=== PATIENT | female | born 1990 | race Asian ===

== ENCOUNTER 2022-03-10 14:05 | Inpatient (IN) | payer OTHER ==
[2022-03-10 15:24] VITALS: BMI 31.7
[2022-03-10] MEDS ORDERED: DINOPROSTONE 10 MG VAGINAL SUPPOSITORY VG ONE (15:43)
[2022-03-10] MEDS ORDERED: BUTORPHANOL TARTRATE 2 MG/ML VIAL IVPB ONE (15:44)
[2022-03-10] MEDS ORDERED: PROMETHAZINE HCL 25 MG/1 ML VIAL IVPUSH ONE (15:44)
[2022-03-10 16:30] LABS: BASO % 0.6 % (0-2.0); EOS % 0.7 % (0-4.5); HEMATOCRIT 34.7 % (32.4-45.2); MCH 30.6 pg (25.7-33.7); MCHC 34.5 g/dl (32.0-36.0); MEAN CELL VOLUME 88.7 fl (80-96); MEAN PLT VOLUME 8.5 fl (7.5-11.1); MONO % 6.9 % (3.8-10.2); NEUT % 77.8 % (42.8-82.8); PLATELET COUNT 142 10^3/uL (134-434); RBC 3.91 M/mm3 (3.60-5.2); WHITE BLOOD COUNT 8.3 K/mm3 (4.0-10.0)
[2022-03-10 16:39] LABS: INR 1.12 (0.83-1.09); PROTHROMBIN TIME (PATIENT) 12.9 SEC (9.7-13.0)
[2022-03-10 16:42] LABS: ACTIVATED PTT 29.1 SECONDS (25.2-36.5)
[2022-03-10 17:30] LABS: CALCIUM 8.6 mg/dL (8.5-10.1)
[2022-03-10 17:33] LABS: CREATININE 0.3 mg/dL (0.55-1.3)
[2022-03-10] MEDS: DEXTROSE 5%-LACTATED RINGERS 1,000 ML IV SCH (18:00)
[2022-03-11] MEDS ORDERED: ELECTROLYTE-148 SOLN 1,000 ML IV ONE (05:00)
[2022-03-11] MEDS: DEXTROSE 5%-LACTATED RINGERS 1,000 ML IV SCH (05:00)
[2022-03-11] MEDS ORDERED: OXYTOCIN 30 UNITS in 0.9% NS 30 UNIT/500 ML INFUS.BAG IVPB ONE (05:23)
[2022-03-11] MEDS: OXYTOCIN 30 UNITS in 0.9% NS 30 UNIT/500 ML INFUS.BAG IVPB SCH ×2 (05:30→05:50)
[2022-03-11] MEDS ORDERED: CITRIC ACID/SODIUM CITRATE 30 ML UNIT-DOSE CUP PO ONE (08:18)
[2022-03-11] MEDS ORDERED: morphine SULFATE/PF 1 MG/2 ML (2cc Syringe - QUVA) EP ONE (08:26)
[2022-03-11] MEDS ORDERED: ONDANSETRON 4 MG/2 ML VIAL IVPUSH PRN (08:26)
[2022-03-11] MEDS ORDERED: morphine SULFATE/PF 1 MG/2 ML (2cc Syringe - QUVA) ONE (08:31)
[2022-03-11] MEDS ORDERED: SODIUM CHLORIDE 0.9% P/F 10 ML VIAL IJ ONE (08:32)
[2022-03-11] MEDS ORDERED: ceFAZolin SODIUM 1 GM VIAL ONE (08:32)
[2022-03-11] MEDS ORDERED: PHENYLEPHRINE HCL 10 MG/1 ML SINGLE DOSE VIAL ONE (08:45)
[2022-03-11] MEDS ORDERED: OXYTOCIN 10 UNITS/ML VIAL ONE (08:53)
[2022-03-11] MEDS ORDERED: ONDANSETRON 4 MG/2 ML VIAL ONE (08:57)
[2022-03-11] MEDS ORDERED: MIDAZOLAM HCL 2 MG/2 ML SINGLE DOSE VIAL ONE (09:11)
[2022-03-11 09:25] LABS: CORD PCO2 59.5 mmHg (30-78); CORD pH 7.259 (7.14-7.44)
[2022-03-11 09:26] LABS: CORD BASE EXCESS -2.8 mmol/L (0-2); CORD HCO3 23.1 mmHg (20-29); CORD PCO2 44.3 mmHg (30-78); CORD pH 7.335 (7.14-7.44)
[2022-03-11] MEDS ORDERED: ACETAMINOPHEN 325 MG TABLET (FP) PO PRN (09:43)
[2022-03-11] MEDS ORDERED: SENNOSIDES/DOCUSATE COMBO (SENNA PLUS) TABLET (UD) PO PRN (09:43)
[2022-03-11] MEDS ORDERED: METHYLERGONOVINE MALEATE 0.2 MG/1 ML AMP IM PRN (09:43)
[2022-03-11] MEDS: OXYTOCIN 20 UNITS in 0.9% NS 20 UNIT/1,000 ML INFUS.BAG IV SCH (11:08)
[2022-03-11] MEDS ORDERED: OXYTOCIN 20 UNITS in 0.9% NS 20 UNIT/1,000 ML INFUS.BAG IV ONE (11:09)
[2022-03-11] MEDS: CEFAZOLIN 1 GM in DEXTROSE 5%-WATER - 50 ML IVPB SCH ×2 (16:25→17:09)
[2022-03-11] MEDS: IBUPROFEN 800 MG/8 ML IJ IVPB PRN (17:27)
[2022-03-11] MEDS ORDERED: oxyCODONE HCL 5 MG TABLET PO PRN (21:44)
[2022-03-12] MEDS: CEFAZOLIN 1 GM in DEXTROSE 5%-WATER - 50 ML IVPB SCH ×2 (01:00→10:03)
[2022-03-12] MEDS: IBUPROFEN 800 MG/8 ML IJ IVPB PRN (01:32)
[2022-03-12] MEDS: oxyCODONE HCL 5 MG TABLET PO PRN ×2 (06:30→19:35)
[2022-03-12] MEDS: SIMETHICONE 80 MG TAB.CHEW (FP) PO PRN ×2 (06:32→19:36)
[2022-03-12 08:12] LABS: BASO % 0.3 % (0-2.0); EOS % 0.4 % (0-4.5); HEMATOCRIT 32.8 % (32.4-45.2); LYMPH % 10.7 % (8-40); MCHC 33.4 g/dl (32.0-36.0); MEAN CELL VOLUME 89.7 fl (80-96); MONO % 5.5 % (3.8-10.2); NEUT % 83.1 % (42.8-82.8); PLATELET COUNT 138 10^3/uL (134-434); RBC 3.66 M/mm3 (3.60-5.2); RDW 16.3 % (11.6-15.6); WHITE BLOOD COUNT 8.7 K/mm3 (4.0-10.0)
[2022-03-12] MEDS ORDERED: BISACODYL 10 MG SUPP.RECT RC PRN (09:44)
[2022-03-12] MEDS: ENOXAPARIN NA (PORCINE) 40 MG/0.4 ML DISP.SYRIN SQ SCH (10:01)
[2022-03-12] MEDS: IBUPROFEN 600 MG TABLET (FP) PO PRN (10:02)
[2022-03-12] MEDS: FERROUS SO4 325 MG TABLET (FP) PO SCH ×2 (10:03→21:19)
[2022-03-12] MEDS: PRENATAL VITAMINS W/ FOLIC ACID TABLET (FP) PO SCH (10:03)
[2022-03-13] MEDS: SIMETHICONE 80 MG TAB.CHEW (FP) PO PRN ×5 (00:11→22:29)
[2022-03-13] MEDS: OXYTOCIN 30 UNITS in 0.9% NS 30 UNIT/500 ML INFUS.BAG IVPB SCH (00:42)
[2022-03-13] MEDS: OXYTOCIN 20 UNITS in 0.9% NS 20 UNIT/1,000 ML INFUS.BAG IV SCH (00:51)
[2022-03-13] MEDS: IBUPROFEN 600 MG TABLET (FP) PO PRN ×5 (02:30→22:28)
[2022-03-13] MEDS: FERROUS SO4 325 MG TABLET (FP) PO SCH ×2 (09:22→22:29)
[2022-03-13] MEDS: PRENATAL VITAMINS W/ FOLIC ACID TABLET (FP) PO SCH (09:22)
[2022-03-13] MEDS: ENOXAPARIN NA (PORCINE) 40 MG/0.4 ML DISP.SYRIN SQ SCH (09:23)
[2022-03-13 22:05] VITALS: RESP 16
[2022-03-14] MEDS: IBUPROFEN 600 MG TABLET (FP) PO PRN ×3 (02:34→10:46)
[2022-03-14 08:57] LABS: BASO % 0.3 % (0-2.0); EOS % 2.1 % (0-4.5); HEMATOCRIT 31.6 % (32.4-45.2); HEMOGLOBIN 10.6 GM/dL (10.7-15.3); LYMPH % 17.2 % (8-40); MCH 30.1 pg (25.7-33.7); MCHC 33.6 g/dl (32.0-36.0); MEAN CELL VOLUME 89.3 fl (80-96); MEAN PLT VOLUME 8.1 fl (7.5-11.1); MONO % 4.8 % (3.8-10.2); NEUT % 75.6 % (42.8-82.8); PLATELET COUNT 153 10^3/uL (134-434); RBC 3.53 M/mm3 (3.60-5.2); WHITE BLOOD COUNT 5.9 K/mm3 (4.0-10.0)
[2022-03-14] MEDS: PRENATAL VITAMINS W/ FOLIC ACID TABLET (FP) PO SCH (09:27)
[2022-03-14] MEDS: FERROUS SO4 325 MG TABLET (FP) PO SCH (09:27)
[2022-03-14] MEDS: ENOXAPARIN NA (PORCINE) 40 MG/0.4 ML DISP.SYRIN SQ SCH (09:27)
[2022-03-14 10:37] VITALS: BP 101/65; PULSE 95; TEMP 97.8
== END 2022-03-14 12:30 | disposition home or self-care (01) | DRG 540 ==
LOC: JLDR 14:05 → J3W 03-11 11:45
PROVIDERS: ADMIT Obstetrics & Gynecology; ATTEND Obstetrics & Gynecology
PROC: 3E0P7VZ Introduction of Hormone into Female Reproductive, Via Natural or Artificial Opening (ICD-10-PCS; 2022-03-10)
PROC: 10D00Z1 Extraction of Products of Conception, Low, Open Approach (ICD-10-PCS; principal; 2022-03-11)
DX: O36.8330 Maternal care for abnormalities of the fetal heart rate or rhythm, third trimester, not applicable or unspecified (principal); O41.03X0 Oligohydramnios, third trimester, not applicable or unspecified; Z3A.40 40 weeks gestation of pregnancy; Z37.0 Single live birth
CPT/HCPCS: 36415; 36600; 80048; 82803; 85025; 85610; 85730; 86780; 86850; 86900; 86901; 88307-TC; C9803-CS; U0003; U0005

== ENCOUNTER 2022-06-22 04:03 | Day surgery (SDC) | payer OTHER ==
[2022-06-20 15:11] VITALS: BMI 27.2
[2022-06-22] MEDS ORDERED: PROPOFOL 40 ML ONE (07:02)
[2022-06-22] MEDS ORDERED: FENTANYL CITRATE/PF 50 MCG/ML VIAL ONE ×3 (07:02→08:15)
[2022-06-22] MEDS ORDERED: MIDAZOLAM HCL 2 MG/2 ML SINGLE DOSE VIAL ONE (07:02)
[2022-06-22] MEDS ORDERED: SUCCINYLCHOLINE CHLORIDE 200 MG/10 ML SYRINGE ONE (07:03)
[2022-06-22] MEDS ORDERED: oxyCODONE HCL 5 MG TABLET PO PRN ×2 (07:30)
[2022-06-22] MEDS ORDERED: LACTATED RINGERS SOLUTION 1,000 ML IV SCH (07:30)
[2022-06-22] MEDS ORDERED: ACETAMINOPHEN 325 MG TABLET (FP) PO PRN ×2 (07:30→08:50)
[2022-06-22] MEDS ORDERED: ONDANSETRON 4 MG/2 ML VIAL IVPUSH PRN (07:30)
[2022-06-22] MEDS ORDERED: ROCURONIUM BROMIDE 50 MG/5 ML SYRINGE ONE (07:59)
[2022-06-22] MEDS ORDERED: LIDOCAINE HCL 1%, 10 MG/ML (20ML VIAL) ONE (08:01)
[2022-06-22] MEDS ORDERED: ceFAZolin SODIUM 1 GM VIAL ONE ×2 (08:06)
[2022-06-22] MEDS ORDERED: ceFAZolin SODIUM 1 GM VIAL IVPB ONE (08:10)
[2022-06-22] MEDS ORDERED: GLYCOPYRROLATE 0.2 MG/1 ML VIAL ONE ×2 (08:25)
[2022-06-22] MEDS ORDERED: NEOSTIGMINE METHYLSULFATE 0.5 MG/ML - 10 ML MDV ONE (08:25)
[2022-06-22] MEDS ORDERED: LIDOCAINE HCL 1%, 10 MG/ML (20ML VIAL) NR ONE (08:37)
[2022-06-22] MEDS ORDERED: IBUPROFEN 400 MG TABLET (FP) PO PRN (08:50)
[2022-06-22 10:53] VITALS: BP 102/72; PULSE 72; RESP 18; TEMP 97.2
[2022-06-22] MEDS ORDERED: ACETAMINOPHEN 325 MG TABLET (FP) ONE ×2 (10:59)
== END 2022-06-22 12:30 | disposition home or self-care (01) ==
LOC: JASU-SURG 04:03
PROVIDERS: ATTEND Obstetrics & Gynecology
PROC: 0UB74ZZ Excision of Bilateral Fallopian Tubes, Percutaneous Endoscopic Approach (ICD-10-PCS; principal; 2022-06-22 07:30)
DX: Z30.2 Encounter for sterilization (principal)
CPT/HCPCS: 88302-TC; 94760